=== PATIENT | female | born 1965 | race Caucasian/White ===

== ENCOUNTER 2016-08-03 15:15 | Inpatient (IN) | payer OTHER ==
[~2016-08-03] VITALS: Ht 177.8 cm; Wt 114.1 kg
[~2016-08-03 15:15] MED LIST: ADDERALL10 MG PO; ADDERALL20 MG PO; AMBIEN10 MG PO; AMPHETAMINE SAL20 MG PO; BACTRIM,SEPT1 TABLET PO; CLONAZEPAM0.5 MG PO; CLONAZEPAM1 MG PO; CYANOCOBALAM1000 MCG PO; CYMBALTA60 MG PO; DESYREL 150 MG150 MG PO; DESYREL100 MG PO; FLEXERIL10 MG PO; IBUPROFEN800 MG PO; KLONOPIN0.5 MG PO; KLONOPIN1 M1 PO; KLONOPIN1 MG PO; LASIX40 MG PO; LIDODERM 5% P1 PATCH TD; MOTRIN800 MG PO; NAPROSYN500 MG PO; NORCO 5/3251 TABLET PO; NORCO 7.5/321 TABLET PO; ORAL CONTRACEPTIVES; ORTHO-CYCLEN1 EACH PO; PAROXETINE HCL40 MG PO; PAXIL40 MG PO; PERCOCET 5/31 TABLET PO; PREDNISONE10 MG PO; PREDNISONE20 MG PO; PREVIFEM1 EACH PO; PROZAC20 MG PO; SEROQUEL400 MG PO; SPRINTEC1 EACH PO; TESSALON PERLE100 MG PO; TORADOL10 MG PO; TRAZODONE HCL150 MG PO; TRAZODONE HCL50 MG PO; WELLBUTRIN XL300 MG PO; ZOLPIDEM TARTRA10 MG PO; ZYRTEC10 M2 PO; cymbalta; klonopin; trazodone
[2016-08-03 16:44] LABS: EOSINOPHIL (%) 1.9 % (0-5); EOSINOPHIL COUNT 0.2 K/uL (0-0.3); HEMATOCRIT 38.2 % (36.0-46.0); IMMATURE GRANULOCYTE (%) 0.2 % (0.0-0.7); INSTRUMENT ABS NEUTROPHIL CT 5.8 K/uL; MCH 26.7 PG (29.0-34.0); MCHC 32.2 G/DL (30.0-36.0); MCV 82.9 FL (83-99); MEAN PLAT.VOLUME 9.8 uM^3 (9.5-12.4); MONOCYTE (%) 3.8 % (3-12); MONOCYTE COUNT 0.3 K/uL (0-0.8); NEUTROPHIL (%) 70.2 % (45-76); NEUTROPHIL COUNT 5.8 K/uL (1.8-6.4); PLATELET COUNT 320 K/uL (156-360); RBC DIS.WIDTH-CV 15.8 % (11.8-14.6); RBC DIS.WIDTH-SD 47.5 % (39-53); RED BLOOD COUNT 4.61 M/uL (3.80-5.20); WHITE BLOOD COUNT 8.3 K/uL (4.1-10.2)
[2016-08-03 17:00] LABS: CHLORIDE 109 mEq/L (99-109); POTASSIUM 3.7 mEq/L (3.7-5.4); SODIUM 141 mEq/L (136-147)
[2016-08-03 17:02] LABS: GLUCOSE 76 mg/dL (70-99)
[2016-08-03 17:03] LABS: ANION GAP 11 MEQ/L (2-14)
[2016-08-03 17:04] LABS: TOTAL BILIRUBIN 0.6 mg/dL (0.0-1.0)
[2016-08-03 17:05] LABS: SERUM ETHYL ALCOHOL < 10 mg/dL
[2016-08-03 17:06] LABS: GFR ESTIMATE (CALCULATED) > 59 mL/min/
[2016-08-03 17:07] LABS: ALKALINE PHOSPHATASE 99 IU/L (3-129)
[2016-08-03 17:08] LABS: UREA NITROGEN (BUN) 10 mg/dL (9-23)
[2016-08-03 17:09] LABS: SALICYLATE < 5.0 MG/DL (15-30)
[2016-08-03 17:18] LABS: QUANTITATIVE HCG < 4.0 MIU/ML
[2016-08-03 17:28] LABS: COLOR YELLOW ((YELLOW)); LEUKOCYTES TRACE; NITRITE NEGATIVE; SPECIFIC GRAVITY 1.029 (1.000-1.030)
[2016-08-03 17:29] LABS: ADD MIUA? YES; BILIRUBIN SMALL; BLOOD SMALL; GLUCOSE (STRIP) NEGATIVE; KETONES 80; PROTEIN (STRIP) TRACE; UROBILINOGEN 0.2 MG/DL (0.2-1.0)
[2016-08-03 17:30] LABS: BACTERIA 1+ /HPF; EPITHELIAL CELLS 1+ /HPF; MUCUS 1+ /LPF; RED BLOOD CELLS 0-5 /HPF (0-5); UCUL ADDED? NO; WHITE BLOOD CELLS 0-5 /HPF (0-5)
[2016-08-03 17:31] LABS: AMPHETAMINE NEGATIVE (500 ng/mL); BENZODIAZEPINES PRESUMPTIVE POSITIVE (150 ng/mL); COCAINE NEGATIVE (150 ng/mL); METHAMPHETAMINE NEGATIVE (500 ng/mL); OPIATES (MORPHINE) NEGATIVE (100 ng/mL); PHENCYCLIDINE NEGATIVE (25 ng/mL); THC CANNABINOIDS NEGATIVE (50 ng/mL); TRICYCLIC ANTIDEPRESSANTS NEGATIVE (300 ng/mL)
[2016-08-03 17:32] LABS: ADD MEDTOX COMMENT Y; BARBITURATES NEGATIVE (200 ng/mL); INTERNAL CONTROLS VALID? YES; METHADONE NEGATIVE (200 ng/mL); OXYCODONE NEGATIVE (100 ng/mL); PROPOXYPHENE NEGATIVE (300 ng/mL)
[2016-08-03 18:13] LABS: BENZODIAZEPINES QUANT VALUE 0 NG/ML
[2016-08-03 18:22] LABS: BENZODIAZEPINES, URINE SCREEN Negative (200 ng/mL)
[2016-08-03] MEDS ORDERED: SPRINTEC1 EACH PO (18:33)
[2016-08-03] MEDS ORDERED: KLONOPIN1 MG PO (18:33)
[2016-08-03] MEDS ORDERED: CYANOCOBALAM1000 MCG PO (18:34)
[2016-08-03] MEDS ORDERED: WELLBUTRIN XL150 MG PO (18:34)
[2016-08-03] MEDS ORDERED: SEROQUEL50 MG PO (18:34)
[2016-08-03] MEDS ORDERED: MOTRIN800 MG PO (18:35)
[2016-08-04 07:56] VITALS: BP 119/69
[2016-08-04 15:16] VITALS: BP 118/70
[2016-08-05 07:36] VITALS: BP 110/56
[2016-08-05 15:11] VITALS: BP 114/60
[2016-08-06 09:02] VITALS: BP 118/66
[2016-08-06 15:21] VITALS: BP 116/54
[2016-08-07 07:47] VITALS: BP 111/54
[2016-08-07 15:26] VITALS: BP 121/73
[2016-08-08 07:59] VITALS: BP 124/58
[2016-08-08 15:52] VITALS: BP 107/55
[2016-08-09 07:32] VITALS: BP 92/55
[2016-08-09 15:19] VITALS: BP 101/59
[2016-08-10 07:53] VITALS: BP 124/52
[2016-08-10] MEDS ORDERED: FLUOXETINE HCL20 MG PO (09:55)
[2016-08-10] MEDS ORDERED: DESYREL 150 MG150 MG PO (09:55)
[2016-08-10] MEDS ORDERED: BUPROPION XL300 MG PO (09:55)
[2016-08-10] MEDS ORDERED: CLONAZEPAM0.5 MG PO (09:55)
== END 2016-08-10 14:17 | disposition home or self-care (01) | DRG 885 ==
LOC: EME 15:15 → 1WEST 18:13 → EDOF 18:13 → 1WEST 18:13
PROVIDERS: Emergency Medicine
DX: F33.2 Major depressive disorder, recurrent severe without psychotic features (principal); R45.851 Suicidal ideations; F17.210 Nicotine dependence, cigarettes, uncomplicated
CPT/HCPCS: 80053; 81003; 84702; 84999; 85025; 90837; 97150 GO; 97165 GO; 99281; 99284; G0480

== ENCOUNTER 2016-12-15 16:20 | Inpatient (IN) | payer OTHER ==
[~2016-12-15] VITALS: Ht 177.8 cm; Wt 112.0 kg
[~2016-12-15 16:20] MED LIST changes: +BUPROPION XL300 MG PO; +FLUOXETINE HCL20 MG PO; +SEROQUEL50 MG PO; +WELLBUTRIN XL150 MG PO
[2016-12-15] MEDS ORDERED: PERCOCET 5/31 TABLET PO (19:20)
[2016-12-15 20:27] LABS: HEMATOCRIT 38.3 % (36.0-46.0); MCH 25.7 PG (29.0-34.0); MCHC 32.1 G/DL (30.0-36.0); MCV 80.1 FL (83-99); MEAN PLAT.VOLUME 9.3 uM^3 (9.5-12.4); PLATELET COUNT 349 K/uL (156-360); RBC DIS.WIDTH-SD 43.6 % (39-53); RED BLOOD COUNT 4.78 M/uL (3.80-5.20); WHITE BLOOD COUNT 13.8 K/uL (4.1-10.2)
[2016-12-15 20:34] LABS: CHLORIDE 102 mEq/L (99-109); POTASSIUM 3.4 mEq/L (3.7-5.4); SODIUM 139 mEq/L (136-147)
[2016-12-15 20:36] LABS: GLUCOSE 106 mg/dL (70-99)
[2016-12-15 20:38] LABS: ANION GAP 12 MEQ/L (2-14)
[2016-12-15 20:40] LABS: GFR ESTIMATE (CALCULATED) > 59 mL/min/
[2016-12-15 20:41] LABS: UREA NITROGEN (BUN) 14 mg/dL (9-23)
[2016-12-15] MEDS ORDERED: FLUOXETINE HCL20 MG PO (22:08)
[2016-12-15] MEDS ORDERED: WELLBUTRIN XL300 MG PO (22:17)
[2016-12-15] MEDS ORDERED: PROZAC40 MG PO (22:18)
[2016-12-15] MEDS ORDERED: DESYREL100 MG PO (22:19)
[2016-12-15] MEDS ORDERED: LASIX40 MG PO (22:19)
[2016-12-15] MEDS ORDERED: OXYCODONE HCL10 MG PO (22:20)
[2016-12-15] MEDS ORDERED: POTASSIUM (22:21)
[2016-12-15 22:37] VITALS: BP 124/79
[2016-12-16 04:00] VITALS: BP 139/67
[2016-12-16 11:53] VITALS: BP 167/82
[2016-12-16] MEDS ORDERED: CYCLOBENZAPRINE10 MG PO (14:40)
[2016-12-16 20:00] VITALS: BP 128/78
[2016-12-17 00:45] VITALS: BP 126/70
[2016-12-17 04:00] VITALS: BP 114/74
[2016-12-17 06:50] VITALS: BP 146/71
[2016-12-17 10:16] LABS: BARBITUATES QUANT VALUE 0 NG/ML; BENZODIAZEPINES QUANT VALUE 0 NG/ML; BENZODIAZEPINES, URINE SCREEN Negative (200 ng/mL); MARIJUANA QUANT VALUE 0 NG/ML; PHENCYCLIDINE QUANT VALUE 0 NG/ML
[2016-12-17 12:46] VITALS: BP 104/62
[2016-12-17] MEDS ORDERED: OXYCODONE HCL15 MG PO (15:24)
[2016-12-17 16:44] VITALS: BP 105/64
== END 2016-12-17 18:15 | disposition home or self-care (01) | DRG 552 ==
LOC: EME 16:20 → 5WEST 21:18 → EDOF 21:18 → ENRESERV 21:19 → 5WEST 22:27 → ENRESERV 12-17 14:35 → CANRESERV 12-17 15:09 → 5WEST 12-17 18:15
PROVIDERS: Emergency Medicine; Physician Assistant Medical
DX: S32.019A Unspecified fracture of first lumbar vertebra, initial encounter for closed fracture (principal); I48.0 Paroxysmal atrial fibrillation; F32.9 Major depressive disorder, single episode, unspecified; R51 Headache; Y04.2XXA Assault by strike against or bumped into by another person, initial encounter; D72.828 Other elevated white blood cell count; E66.9 Obesity, unspecified; E87.6 Hypokalemia; F41.1 Generalized anxiety disorder; G89.4 Chronic pain syndrome; I34.0 Nonrheumatic mitral (valve) insufficiency; M48.06 Spinal stenosis, lumbar region; M81.0 Age-related osteoporosis without current pathological fracture; Z68.37 Body mass index [BMI] 37.0-37.9, adult; Z79.899 Other long term (current) drug therapy; Z81.8 Family history of other mental and behavioral disorders; Z82.49 Family history of ischemic heart disease and other diseases of the circulatory system; Z87.891 Personal history of nicotine dependence; G47.00 Insomnia, unspecified; G89.29 Other chronic pain; M54.9 Dorsalgia, unspecified
CPT/HCPCS: 70450; 71250; 72020; 72100; 72128; 72131; 80048; 80306 90; 81003; 85027; 99281; 99285; G0378; G8978 GP CJ; G8979 GP CI; G8987 CK; G8988 GO CJ; J0780; J1170; J1200; J1650; J1885; J2270; J7050

== ENCOUNTER 2017-01-15 13:43 | Day surgery (SDC) | payer OTHER ==
[~2017-01-15] VITALS: Ht 177.8 cm; Wt 111.5 kg
[~2017-01-15 13:43] MED LIST changes: +CYCLOBENZAPRINE10 MG PO; +KLOR-CON 88 MEQ PO; +OXYCODONE HCL10 MG PO; +OXYCODONE HCL15 MG PO; +POTASSIUM; +PROZAC40 MG PO
[2017-01-15 14:23] VITALS: BP 137/75
[2017-01-15 20:37] VITALS: BP 144/71
[2017-01-15 21:38] VITALS: BP 127/73
[2017-01-15 22:35] VITALS: BP 135/82
[2017-01-15 23:26] VITALS: BP 149/80
== END 2017-01-15 23:30 | disposition home or self-care (01) ==
LOC: SDC 13:43
PROC: 0QU03JZ Supplement Lumbar Vertebra with Synthetic Substitute, Percutaneous Approach (ICD-10-PCS; principal; 2017-01-15)
DX: M48.56XA Collapsed vertebra, not elsewhere classified, lumbar region, initial encounter for fracture (principal); F41.9 Anxiety disorder, unspecified; Z79.891 Long term (current) use of opiate analgesic; Z87.891 Personal history of nicotine dependence
CPT/HCPCS: J0131; J0330; J0690; J1100; J1170; J2250; J2405; J3010